=== PATIENT | female | born 1945 | race Caucasian/White ===

== ENCOUNTER → 2017-05-30 | Outpatient (CLI) | payer OTHER, MEDICARE ==
[~2017-05-30] MED LIST: ALBU1AER9 INH; ASPI81TA57 PO; B-COTAB18 PO; BRIM0.1S OPB; CALC600T9 PO; CINN1CAP2 PO; COEN1CAP17 PO; DILT120C PO; LISI-461 PO; LSX20 PO; MAGN1TAB19 PO; METF-384 PO; MISCCAP8 PO; MULTCAP42 PO; OMEG10007 PO; POME250C2 PO; ROSU5TAB PO; RXC5 PO; XLTOPS OPB; ZTA10 PO; [UNRECOGNIZED DRUG - OTHER] PO
--- NOTE | 2017-05-30 12:41 | MAMMOGRAPHY REPORT ---
BILATERAL DIGITAL SCREENING MAMMOGRAM WITH CAD: 05/30/2017 CLINICAL HISTORY: Routine screening. Patient has no complaints. TECHNIQUE: Current study was also evaluated with a Computer Aided Detection (CAD) system. Bilateral CC and MLO views were obtained. COMPARISON: Comparison is made to exams dated: 05/24/2015 mammogram and 05/29/2016 mammogram - [facility]. BREAST COMPOSITION: The tissue of both breasts is almost entirely fatty. FINDINGS: No suspicious masses, calcifications, or areas of architectural distortion are noted in ei ther breast. There has been no significant interval change compared to prior exams. Scattered bilater al benign-appearing calcifications are not significantly changed. There is a stable benign intramamm temitope lymph node in the left upper outer quadrant. IMPRESSION: ACR BI-RADS CATEGORY 2: BENIGN There is no mammographic evidence of malignancy. A 1 year screening mammogram is recommended. The pa tient will receive written notification of the results. Approximately 10% of breast cancers are not detected with mammography. A negative mammographic report should not delay biopsy if a clinically suggestive mass is present. Jennifer Mcdonald M.D. ah/:05/30/2017 12:14:59 Signal Tower Director: Kayy Rodriguez RT(R)(M), [facility] letter sent: Normal 1/2 BI-RADS Code: ACR BI-RADS Category 2: Benign
== END | disposition home or self-care (01) ==
LOC: C.MAMM 10:36
PROVIDERS: ATTEND Family Medicine
DX: Z12.31 Encounter for screening mammogram for malignant neoplasm of breast (principal)

== ENCOUNTER → 2017-12-02 | Outpatient (CLI) | payer OTHER, MEDICARE ==
[~2017-12-02] MED LIST changes: +DILT-213 PO; -DILT120C PO
[2017-12-02 11:36] LABS: HEMATOCRIT 40.6 % (37-47); MEAN CELL VOLUME 83.9 fL (80-100); MEAN CORPUSCULAR HEMOGLOBIN 26.9 pg (25-34); MEAN PLATELET VOLUME 10.2 fL (7.4-10.4); PLATELET COUNT 309 K/uL (130-400); RED CELL DISTRIBUTION WIDTH CV 15.3 % (11.5-14.5); RED CELL DISTRIBUTION WIDTH SD 46.8 fL (36.4-46.3); WHITE BLOOD COUNT 8.93 K/uL (4.8-10.8)
[2017-12-02 11:55] LABS: ALBUMIN 3.6 gm/dl (3.4-5.0); ALT/SGPT 55 U/L (12-78); AST/SGOT 34 U/L (15-37); BLOOD UREA NITROGEN 34 mg/dl (7-18); CALCIUM 9.6 mg/dl (8.5-10.1); CARBON DIOXIDE 24 mmol/L (21-32); CREATININE 0.95 mg/dl (0.60-1.20); GLUCOSE 141 mg/dl (70-99); POTASSIUM 4.3 mmol/L (3.5-5.1); SODIUM 139 mmol/L (136-145)
[2017-12-02 11:56] LABS: CHOLESTEROL 194 mg/dl (0-200); HEMOGLOBIN A1C 7.5 % (4.5-5.6)
[2017-12-02 11:58] LABS: ALKALINE PHOSPHATASE 71 U/L (45-117); LDL CHOLESTEROL (DIRECT) 103 mg/dl; TOTAL PROTEIN 7.5 gm/dl (6.4-8.2)
== END | disposition home or self-care (01) ==
LOC: C.LABPBG 08:39
PROVIDERS: ATTEND Internal Medicine Cardiovascular Disease
DX: Z82.49 Family history of ischemic heart disease and other diseases of the circulatory system (principal); R00.2 Palpitations; Z79.899 Other long term (current) drug therapy

== ENCOUNTER → 2017-12-09 | Outpatient (CLI) | payer OTHER, MEDICARE ==
[2017-12-09 18:26] LABS: BLOOD UREA NITROGEN 24 mg/dl (7-18)
[2017-12-10 11:53] LABS: CREATININE 0.93 mg/dl (0.60-1.20)
== END | disposition home or self-care (01) ==
LOC: C.LABPBG 12:48
PROVIDERS: ATTEND Surgery
DX: K86.2 Cyst of pancreas (principal)

== ENCOUNTER 2017-12-22 14:55 | Emergency (ER) | payer OTHER, MEDICARE ==
[~2017-12-22] VITALS: Ht 154.9 cm; Wt 82.0 kg
[2017-12-22 15:01] VITALS: Ht 154.9 cm; Wt 82.0 kg
[2017-12-22] MEDS ORDERED: PROAIR INH (15:35)
[2017-12-22] MEDS ORDERED: GLIP10TA10 PO (15:35)
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
--- NOTE | 2017-12-22 16:13 | EMERGENCY ROOM VISIT NOTE ---
ED Visit Note First contact with patient: 15:02 Staff note: I have reviewed the Patients chart and have discussed this case with my PA. I generally agree with the ED note and findings.
[2017-12-22 16:29] VITALS: BP 140/71; PULSE 117; TEMP 36.9; O2SAT 93
== END 2017-12-22 16:30 | disposition home or self-care (01) ==
LOC: C.EDB 14:57 → C.EDD 16:30
DX: S80.12XA Contusion of left lower leg, initial encounter (principal); V47.0XXA Car driver injured in collision with fixed or stationary object in nontraffic accident, initial encounter; Y92.481 Parking lot as the place of occurrence of the external cause; E11.9 Type 2 diabetes mellitus without complications; Z79.84 Long term (current) use of oral hypoglycemic drugs

== ENCOUNTER → 2018-05-06 | Outpatient (CLI) | payer OTHER, MEDICARE ==
[~2018-05-06] MED LIST changes: -ALBU1AER9 INH; -ASPI81TA57 PO; -CINN1CAP2 PO; +GLIP10TA10 PO; +NITR-5 PO; +PROAIR INH; -RXC5 PO
[2018-05-06 13:02] LABS: HEMATOCRIT 38.8 % (37-47); HEMOGLOBIN 12.1 g/dL (12.0-16.0); MEAN CELL VOLUME 81.7 fL (80-100); MEAN CORPUSCULAR HEMOGLOBIN 25.5 pg (25-34); MEAN CORPUSCULAR HGB CONC 31.2 g/dl (32-36); MEAN PLATELET VOLUME 10.6 fL (7.4-10.4); PLATELET COUNT 318 K/uL (130-400); RED CELL DISTRIBUTION WIDTH CV 16.4 % (11.5-14.5); RED CELL DISTRIBUTION WIDTH SD 49.2 fL (36.4-46.3); WHITE BLOOD COUNT 8.43 K/uL (4.8-10.8)
[2018-05-06 13:47] LABS: HEMOGLOBIN A1C 7.1 % (4.5-5.6)
[2018-05-06 13:55] LABS: BLOOD UREA NITROGEN 27 mg/dl (7-18); CALCIUM 9.1 mg/dl (8.5-10.1); CARBON DIOXIDE 25 mmol/L (21-32); CHOLESTEROL 168 mg/dl (0-200); CREATININE 1.09 mg/dl (0.60-1.20); GLUCOSE 108 mg/dl (70-99); LDL CHOLESTEROL CALCULATED 62 mg/dl; POTASSIUM 4.6 mmol/L (3.5-5.1); SODIUM 139 mmol/L (136-145)
== END | disposition home or self-care (01) ==
LOC: C.LABPBG 10:17
PROVIDERS: ATTEND Family Medicine
DX: E11.9 Type 2 diabetes mellitus without complications (principal); D64.9 Anemia, unspecified; E78.5 Hyperlipidemia, unspecified; I10 Essential (primary) hypertension

== ENCOUNTER 2019-06-29 09:52 | Observation (INO) ==
--- NOTE | 2019-06-29 10:45 | XRay Report ---
XR chest 1V portable CLINICAL HISTORY: Chest pain. COMPARISON STUDY: Chest radiograph July 02, 2018. FINDINGS: Lung volumes are mildly diminished. Lungs are clear. There is no pneumothorax or pleural ef fusion. Cardiac size is normal. Mediastinal contours are normal. There is no evidence for pulmonary e shana. Lumbar spine fusion hardware is partially imaged. IMPRESSION: No acute cardiopulmonary findings. Electronically signed by: Masood Ng M.D. 06/29/2019 10:44 AM
[2019-06-29 11:18] LABS: Basophils # (auto) 0.05 K/uL (0-0.2); Basophils % (auto) 0.6 %; Eosinophils # (auto) 0.85 K/uL (0-0.5); Eosinophils % (auto) 9.8 %; Hematocrit (blood only) 37.9 % (37-47); Hemoglobin 12.7 g/dL (12.0-16.0); Immature Granulocytes # (auto) 0.02 K/uL (0.00-0.02); Immature Granulocytes % (auto) 0.2 %; Lymphocytes # (auto) 1.56 K/uL (1.2-3.4); Mean Corpuscular Hemoglobin 30.5 pg (25-34); Mean Corpuscular Hgb Conc 33.5 g/dL (32-36); Mean Corpuscular Volume 90.9 fL (80-100); Mean Platelet Volume 9.8 fL (7.4-10.4); Monocytes # (auto) 0.48 K/uL (0.11-0.59); Monocytes % (auto) 5.5 %; Neutrophils # (auto) 5.71 K/uL (1.4-6.5); Neutrophils % (auto) 65.9 %; Platelet Count 236 K/uL (130-400); RDW Coefficient of Variation 14.5 % (11.5-14.5); RDW Standard Deviation 48.3 fL (36.4-46.3); Red Blood Count 4.17 M/uL (4.2-5.4); White Blood Count 8.67 K/uL (4.8-10.8)
[2019-06-29 11:22] LABS: Appearance Urine Cloudy (Clear); Bacteria Urine Automated 4+ (Negative); Bilirubin Urine Negative (Negative); Blood Urine Trace (Negative); Color Urine Yellow; Glucose Urine UA Negative (Negative); Ketones Urine Negative (Negative); Leukocyte Esterase Urine 3+ (Negative); Nitrite Urine Positive (Negative); Protein Urine Negative (Negative); RBC Urine Automated 0-4 /hpf (0-4); Urobilinogen Urine Negative (Negative); WBC Urine Automated >30 /hpf (0-5)
[2019-06-29 11:28] LABS: Partial Thromboplastin Ratio 0.9; Partial Thromboplastin Time 23.6 Seconds (21.0-31.0); Prothrombin Time 10.2 Seconds (9.0-12.0)
[2019-06-29] MEDS ORDERED: cefTRIAXone SODIUM 2,000 MG/70 ML BAG IV STA (11:32)
[2019-06-29 11:35] LABS: Alanine Aminotransferase 47 U/L (12-78); Albumin Level 3.4 gm/dl (3.4-5.0); Aspartate Aminotransferase 32 U/L (15-37); BUN Creatinine Ratio 32.1 (10-20); Blood Urea Nitrogen 37 mg/dl (7-18); Calcium 9.1 mg/dl (8.5-10.1); Carbon Dioxide 25 mmol/L (21-32); Chloride 109 mmol/L (98-107); Est GFR (Non-African American) 45.7; Glucose 117 mg/dl (70-99); Lipase 131 U/L (73-393); Magnesium 1.7 mg/dl (1.8-2.4); Potassium 4.4 mmol/L (3.5-5.1); Sodium 143 mmol/L (136-145)
[2019-06-29 11:40] LABS: Albumin Globulin Ratio 0.9 (0.9-2); Alkaline Phosphatase 55 U/L (45-117); Bilirubin,Total 0.3 mg/dl (0.2-1); Globulin 3.8 gm/dl (2.5-4.0); Total Protein 7.2 gm/dl (6.4-8.2); Troponin I < 0.015 ng/ml (0-0.045)
[2019-06-29] MEDS ORDERED: INFLUENZA VIRUS QUAD VACCINE 0.5 ML SYR IM ONE (16:00)
[2019-06-29] MEDS ORDERED: INFLUENZA ADMINISTRATION CHARGE ONE (16:00)
--- NOTE | 2019-06-29 16:10 | Emergency Department Note ---
Entered by Naida Reynoso acting as a scribe for History of Present Illness General Chief complaint: Chest Pain Stated complaint: CP,L arm pain, Nausea Time Seen by Provider: 06/29/19 10:23 Source: patient History of Present Illness Provider complaint: Chest Pain Onset (ago): week(s) 2 Location: chest Radiation: extremity (Upper ) Maximum Pain Intensity: 4 Exacerbated By: + movement and + rest Associated symptoms: + diaphoresis, + nausea/vomiting (Positive nausea. Negative vomiting. ) and + other (Fatigue); no shortness of breath The patient is a 74 year old female who presents to the Emergency Room with complaints of chest pain that began 2 weeks ago. The patient states the pain radiates from her chest down her arms and is exacerbated by rest and movement. The patient reports experiencing diaphoresis, nausea, and fatigue but denies any vomiting. Additionally, the patient denies experiencing any shortness of breath. The patient notes that the pain usually lasts about 30 minutes and goes away with time. The patient mentioned that she just got off Keflex for a UTI but feels like she has developed another UTI. Additionally, the patient states that she takes medication once a week for cholesterol, blood pressure medication, and aspirin daily. Home Medications Home Medications Medication Instructions Recorded Confirmed Type aspirin [Aspirin Low Dose] 81 mg PO QAM 07/02/18 06/29/19 History brimonidine [Alphagan P] 1 drp OPHTHALMIC (EYE) BID 07/02/18 06/29/19 History calcium carbonate-vitamin D3 1 tab PO BID 07/02/18 06/29/19 History [Calcium 500 + D] coenzyme Q10 100 mg PO HS 07/02/18 06/29/19 History latanoprost 1 drp OPHTHALMIC (EYE) HS 07/02/18 06/29/19 History magnesium 400 mg PO 3XWK 07/02/18 06/29/19 History multivitamin 1 tab PO QAM 07/02/18 06/29/19 History omega 9-[id number]-fish oil [Fish Oil] 1 cap PO QAM 07/02/18 06/29/19 History vitamin B complex 1 tab PO QAM 07/02/18 06/29/19 History blood-glucose meter, drum-type kit #1 ea 04/14/19 06/29/19 History Saccharomyces boulardii 250 mg 250 mg PO HS cap 06/10/19 06/29/19 History capsule albuterol sulfate HFA 90 1 puff INHALATION Q6H PRN #18 gm 06/10/19 06/29/19 Rx mcg/actuation aerosol inhaler glipizide 10 mg tablet 10 mg PO BID #180 tab 06/10/19 06/29/19 Rx lisinopril 10 mg tablet 10 mg PO BID #180 tab 06/10/19 06/29/19 Rx metformin 1,000 mg tablet 1,000 mg PO BID #180 tab 06/17/19 06/29/19 Rx acetaminophen [Tylenol Extra 500 mg PO Q6H PRN 06/29/19 06/29/19 History Strength] diltiazem HCl [Cardizem CD] 120 mg PO HS 06/29/19 06/29/19 History ezetimibe [Zetia] 10 mg PO QAM 06/29/19 06/29/19 History fluticasone propionate 2 sprays INTRANASAL QAM 06/29/19 06/29/19 History furosemide [Lasix] 20 mg PO 3XWK 06/29/19 06/29/19 History nitrofurantoin macrocrystal 100 mg PO HS 06/29/19 06/29/19 History rosuvastatin [Crestor] 5 mg PO MO 06/29/19 06/29/19 History Allergies Allergy/AdvReac Type Severity Reaction Status Date / Time allopurinol Allergy Unknown rash Verified 06/29/19 10:29 Rfzipfn-Zpo-Oai Reductase Allergy Unknown Muscle Verified 06/29/19 10:29 Inhibitor weakness. nitrofurantoin AdvReac Unknown Verified 06/29/19 10:29 [From Furadantin] Past Med/Surg History Medical History Venous insufficiency Stress incontinence in female Recurrent UTI Nephrolithiasis Lumbar spinal stenosis Intraductal papillary mucinous neoplasm of pancreas Hypertension Hyperlipidemia Diabetes mellitus Asthma Arthritis Anemia Cataract HTN (hypertension) Surgical History Status post lumbar surgery History of dental surgery History of knee replacement BOTH KNEES S/P appendectomy S/P bunionectomy S/P cataract extraction S/P cholecystectomy S/P dilation and curettage S/P laminectomy (08/06/16) Status post amputation of toe Family History Mother Cervical cancer Father Myocardial infarction Coronary heart disease Heart disease Sister Diabetes Social History Preferred Language: Tajik Communication Ability: Effective Visual Impairment: No Limitations Hearing Ability: Normal Insurance Billing Clerk Required: No Beliefs That Will Affect Care: None marital status: Current Living Situation: Alone current occupational status: retired Other Information That Helps Us Care for You: No Feels Safe at Home: Yes Safety Concerns: Feels Safe At This Time Smoking Status: Never smoker Do You Dip or Chew Tobacco: No ; Second Hand Exposure: No ; Tobacco Cessation Education Requested by Patient: No Hx Alcohol Use: No Hx Substance Use: No Dental Care, Regularly: Yes Physical Activity Frequency: 5-6 Times per Week Seatbelt Use: always Review of Systems See HPI for pertinent positives & negatives. and A total of 10 systems reviewed and were otherwise negative Physical Exam Vital Signs Vital Signs - 24 hr 06/29/19 09:54 06/29/19 09:58 06/29/19 09:59 Temperature 36.9 C Temperature Source Oral Sepsis Recent Fever Within 48 Hours No Sepsis New/Unexplained Change in Mental Status No Sepsis Action Taken by Nursing No Action Required Pulse Rate 76 78 77 Pulse Rate [Apical] 73 Pulse Rate from SpO2 Sensor 78 Pulse Rhythm [Apical] Regular Respiratory Rate 21 25 H 26 H Respiratory Effort / Characteristics Non-Labored Respiratory Depth Normal Respiratory Pattern Regular Blood Pressure 163/98 H 136/98 Blood Pressure [Right Arm] 149/89 H Blood Pressure Mean 119 110 Blood Pressure Mean [Right Arm] 109 Blood Pressure Position Sitting Blood Pressure Position [Right Arm] Sitting Pulse Oximetry 95 97 Oxygen Delivery Method Room Air Oxygen Flow Rate 0 06/29/19 10:00 06/29/19 10:07 06/29/19 10:10 Temperature Temperature Source Sepsis Recent Fever Within 48 Hours Sepsis New/Unexplained Change in Mental Status Sepsis Action Taken by Nursing Pulse Rate 73 74 77 Pulse Rate [Apical] Pulse Rate from SpO2 Sensor 73 73 76 Pulse Rhythm [Apical] Respiratory Rate 22 17 20 Respiratory Effort / Characteristics Respiratory Depth Respiratory Pattern Blood Pressure 149/89 H Blood Pressure [Right Arm] Blood Pressure Mean 109 Blood Pressure Mean [Right Arm] Blood Pressure Position Blood Pressure Position [Right Arm] Pulse Oximetry 95 96 94 Oxygen Delivery Method Oxygen Flow Rate 06/29/19 10:20 06/29/19 10:30 06/29/19 10:31 Temperature Temperature Source Sepsis Recent Fever Within 48 Hours Sepsis New/Unexplained Change in Mental Status Sepsis Action Taken by Nursing Pulse Rate 72 75 73 Pulse Rate [Apical] Pulse Rate from SpO2 Sensor 72 75 73 Pulse Rhythm [Apical] Respiratory Rate 23 22 22 Respiratory Effort / Characteristics Respiratory Depth Respiratory Pattern Blood Pressure 148/78 H Blood Pressure [Right Arm] Blood Pressure Mean 101 Blood Pressure Mean [Right Arm] Blood Pressure Position Blood Pressure Position [Right Arm] Pulse Oximetry 94 94 96 Oxygen Delivery Method Oxygen Flow Rate 06/29/19 10:33 06/29/19 10:40 06/29/19 10:50 Temperature Temperature Source Sepsis Recent Fever Within 48 Hours Sepsis New/Unexplained Change in Mental Status Sepsis Action Taken by Nursing Pulse Rate 70 68 Pulse Rate [Apical] Pulse Rate from SpO2 Sensor 70 68 Pulse Rhythm [Apical] Respiratory Rate 18 17 Respiratory Effort / Characteristics Respiratory Depth Respiratory Pattern Blood Pressure Blood Pressure [Right Arm] Blood Pressure Mean Blood Pressure Mean [Right Arm] Blood Pressure Position Blood Pressure Position [Right Arm] Pulse Oximetry 97 96 94 Oxygen Delivery Method Room Air Oxygen Flow Rate 06/29/19 11:06 06/29/19 11:10 06/29/19 11:20 Temperature Temperature Source Sepsis Recent Fever Within 48 Hours Sepsis New/Unexplained Change in Mental Status Sepsis Action Taken by Nursing Pulse Rate 70 68 67 Pulse Rate [Apical] Pulse Rate from SpO2 Sensor 70 68 67 Pulse Rhythm [Apical] Respiratory Rate 24 21 21 Respiratory Effort / Characteristics Respiratory Depth Respiratory Pattern Blood Pressure Blood Pressure [Right Arm] Blood Pressure Mean Blood Pressure Mean [Right Arm] Blood Pressure Position Blood Pressure Position [Right Arm] Pulse Oximetry 94 94 92 Oxygen Delivery Method Oxygen Flow Rate 06/29/19 11:30 06/29/19 11:40 06/29/19 11:50 Temperature Temperature Source Sepsis Recent Fever Within 48 Hours Sepsis New/Unexplained Change in Mental Status Sepsis Action Taken by Nursing Pulse Rate 65 66 70 Pulse Rate [Apical] Pulse Rate from SpO2 Sensor 65 65 70 Pulse Rhythm [Apical] Respiratory Rate 21 19 26 H Respiratory Effort / Characteristics Respiratory Depth Respiratory Pattern Blood Pressure Blood Pressure [Right Arm] Blood Pressure Mean Blood Pressure Mean [Right Arm] Blood Pressure Position Blood Pressure Position [Right Arm] Pulse Oximetry 93 93 94 Oxygen Delivery Method Oxygen Flow Rate 06/29/19 11:53 06/29/19 12:00 06/29/19 12:01 Temperature Temperature Source Sepsis Recent Fever Within 48 Hours Sepsis New/Unexplained Change in Mental Status Sepsis Action Taken by Nursing Pulse Rate 70 70 72 Pulse Rate [Apical] Pulse Rate from SpO2 Sensor 71 71 71 Pulse Rhythm [Apical] Respiratory Rate 26 H 23 25 H Respiratory Effort / Characteristics Respiratory Depth Respiratory Pattern Blood Pressure 133/78 126/64 Blood Pressure [Right Arm] Blood Pressure Mean 96 84 Blood Pressure Mean [Right Arm] Blood Pressure Position Blood Pressure Position [Right Arm] Pulse Oximetry 94 94 94 Oxygen Delivery Method Oxygen Flow Rate 06/29/19 12:10 06/29/19 12:20 06/29/19 12:30 Temperature Temperature Source Sepsis Recent Fever Within 48 Hours Sepsis New/Unexplained Change in Mental Status Sepsis Action Taken by Nursing Pulse Rate 69 73 70 Pulse Rate [Apical] Pulse Rate from SpO2 Sensor 69 72 70 Pulse Rhythm [Apical] Respiratory Rate 26 H 26 H 17 Respiratory Effort / Characteristics Respiratory Depth Respiratory Pattern Blood Pressure 147/64 H Blood Pressure [Right Arm] Blood Pressure Mean 91 Blood Pressure Mean [Right Arm] Blood Pressure Position Blood Pressure Position [Right Arm] Pulse Oximetry 95 95 95 Oxygen Delivery Method Oxygen Flow Rate 06/29/19 12:31 06/29/19 12:40 06/29/19 12:50 Temperature Temperature Source Sepsis Recent Fever Within 48 Hours Sepsis New/Unexplained Change in Mental Status Sepsis Action Taken by Nursing Pulse Rate 72 71 74 Pulse Rate [Apical] Pulse Rate from SpO2 Sensor 72 72 74 Pulse Rhythm [Apical] Respiratory Rate 24 19 24 Respiratory Effort / Characteristics Respiratory Depth Respiratory Pattern Blood Pressure Blood Pressure [Right Arm] Blood Pressure Mean Blood Pressure Mean [Right Arm] Blood Pressure Position Blood Pressure Position [Right Arm] Pulse Oximetry 95 97 95 Oxygen Delivery Method Oxygen Flow Rate 06/29/19 13:01 06/29/19 13:10 06/29/19 13:20 Temperature Temperature Source Sepsis Recent Fever Within 48 Hours Sepsis New/Unexplained Change in Mental Status Sepsis Action Taken by Nursing Pulse Rate 76 72 73 Pulse Rate [Apical] Pulse Rate from SpO2 Sensor 79 73 72 Pulse Rhythm [Apical] Respiratory Rate 26 H 25 H 20 Respiratory Effort / Characteristics Respiratory Depth Respiratory Pattern Blood Pressure Blood Pressure [Right Arm] Blood Pressure Mean Blood Pressure Mean [Right Arm] Blood Pressure Position Blood Pressure Position [Right Arm] Pulse Oximetry 95 95 97 Oxygen Delivery Method Oxygen Flow Rate 06/29/19 13:30 06/29/19 13:31 06/29/19 13:40 Temperature Temperature Source Sepsis Recent Fever Within 48 Hours Sepsis New/Unexplained Change in Mental Status Sepsis Action Taken by Nursing Pulse Rate 71 72 71 Pulse Rate [Apical] Pulse Rate from SpO2 Sensor 72 72 71 Pulse Rhythm [Apical] Respiratory Rate 25 H 24 22 Respiratory Effort / Characteristics Respiratory Depth Respiratory Pattern Blood Pressure 129/68 Blood Pressure [Right Arm] Blood Pressure Mean 88 Blood Pressure Mean [Right Arm] Blood Pressure Position Blood Pressure Position [Right Arm] Pulse Oximetry 95 95 95 Oxygen Delivery Method Oxygen Flow Rate 06/29/19 13:50 06/29/19 14:00 06/29/19 14:01 Temperature Temperature Source Sepsis Recent Fever Within 48 Hours Sepsis New/Unexplained Change in Mental Status Sepsis Action Taken by Nursing Pulse Rate 72 72 71 Pulse Rate [Apical] Pulse Rate from SpO2 Sensor 72 73 72 Pulse Rhythm [Apical] Respiratory Rate 24 24 21 Respiratory Effort / Characteristics Respiratory Depth Respiratory Pattern Blood Pressure 136/59 L Blood Pressure [Right Arm] Blood Pressure Mean 84 Blood Pressure Mean [Right Arm] Blood Pressure Position Blood Pressure Position [Right Arm] Pulse Oximetry 94 93 95 Oxygen Delivery Method Oxygen Flow Rate 06/29/19 14:10 06/29/19 14:20 06/29/19 14:30 Temperature Temperature Source Sepsis Recent Fever Within 48 Hours Sepsis New/Unexplained Change in Mental Status Sepsis Action Taken by Nursing Pulse Rate 73 72 71 Pulse Rate [Apical] Pulse Rate from SpO2 Sensor 73 72 71 Pulse Rhythm [Apical] Respiratory Rate 25 H 24 20 Respiratory Effort / Characteristics Respiratory Depth Respiratory Pattern Blood Pressure 136/60 Blood Pressure [Right Arm] Blood Pressure Mean 85 Blood Pressure Mean [Right Arm] Blood Pressure Position Blood Pressure Position [Right Arm] Pulse Oximetry 94 95 96 Oxygen Delivery Method Oxygen Flow Rate 06/29/19 14:31 Temperature Temperature Source Sepsis Recent Fever Within 48 Hours Sepsis New/Unexplained Change in Mental Status Sepsis Action Taken by Nursing Pulse Rate 73 Pulse Rate [Apical] Pulse Rate from SpO2 Sensor 73 Pulse Rhythm [Apical] Respiratory Rate 22 Respiratory Effort / Characteristics Respiratory Depth Respiratory Pattern Blood Pressure Blood Pressure [Right Arm] Blood Pressure Mean Blood Pressure Mean [Right Arm] Blood Pressure Position Blood Pressure Position [Right Arm] Pulse Oximetry 93 Oxygen Delivery Method Oxygen Flow Rate GENERAL: Patient is in no acute distress. HEENT: No acute trauma, normocephalic atraumatic, mucous membranes moist, no nasal congestion, no scleral icterus. NECK: No stridor, no adenopathy, no meningismus, trachea is midline. LUNGS: Clear to auscultation bilaterally, no wheeze, no rhonchi, breath sounds equal. HEART: 2/6 systolic murmur heard best at left sternal border. Regular rate and rhythm. ABDOMEN: Soft, nontender, bowel sounds positive, no hernias, no peritonitis. EXTREMITIES: No cyanosis or edema, full range of motion of all the joints without pain or difficulty, no signs for acute trauma. NEUROLOGIC: Oriented x 3, no acute motor or sensory deficits, no focal weakness. SKIN: No rash, no jaundice, no diaphoresis. Course 1030: Past medical records reviewed. The patient was evaluated in room A09B. A complete history and physical exam was performed. 1238: I reevaluated and discussed test results with the patient. The patient is agreeable with the treatment plan and will stay in the hospital. 1253: I spoke with Dr. Bullard about the patient's case and she will accept the patient for further evaluation. Administered Medications Famotidine 20 mg/ Syringe 5 mls @ 2.5 mls/min IV DAILY@1800 [facility] Stop: 07/29/19 17:59 Last Admin: 06/29/19 17:34 Dose: 2.5 mls/min Documented by: [id number] Insulin Aspart (Novolog Flexpen) 0 units SC ACHS [facility] Stop: 07/29/19 16:29 Last Admin: 06/29/19 17:39 Dose: 1 units Documented by: [id number] Cosigned by: [id number] Rosuvastatin Calcium (Crestor) 5 mg PO Mo@0900 [facility] Stop: 07/29/19 16:25 Last Admin: 06/29/19 17:40 Dose: 5 mg Documented by: [id number] Discontinued Medications Ceftriaxone Sodium (Rocephin) 2,000 mg in 70 mls @ 140 mls/hr IV NOW [facility] Stop: 06/29/19 12:01 Last Infusion: 06/29/19 12:20 Dose: 0 mls/hr Documented by: [id number] Admin: 06/29/19 11:47 Dose: 140 mls/hr Documented by: [id number] Medical Decision Making Differential Diagnosis Differentials Include: Angina, RI, Musculoskeletal pain, Anemia, Electrolyte Imbalance, Aortic D issection, PE, and UTI. Medical Records Attestation: I reviewed the patient's medical records. Home Medications Current Medication List: was personally reviewed by me Laboratory Data Attestation: I reviewed the patient's lab results. Result diagrams: 06/29/19 11:09 06/29/19 11:09 Lab Results 06/29/19 06/29/19 06/29/19 Range/Units 11:04 11:09 11:09 WBC 8.67 (4.8-10.8) K/uL RBC 4.17 L (4.2-5.4) M/uL Hgb 12.7 (12.0-16.0) g/dL Hct 37.9 (37-47) % MCV 90.9 (80-100) fL MCH 30.5 (25-34) pg MCHC 33.5 (32-36) g/dL RDW Std Deviation 48.3 H (36.4-46.3) fL RDW Coeff of Duc 14.5 (11.5-14.5) % Plt Count 236 (130-400) K/uL MPV 9.8 (7.4-10.4) fL Immature Gran % (Auto) 0.2 % Neut % (Auto) 65.9 % Lymph % (Auto) 18.0 % [place] % (Auto) 5.5 % Eos % (Auto) 9.8 % Baso % (Auto) 0.6 % Immature Gran # (Auto) 0.02 (0.00-0.02) K/uL Neut # (Auto) 5.71 (1.4-6.5) K/uL Lymph # (Auto) 1.56 (1.2-3.4) K/uL [place] # (Auto) 0.48 (0.11-0.59) K/uL Eos # (Auto) 0.85 H (0-0.5) K/uL Baso # (Auto) 0.05 (0-0.2) K/uL PT 10.2 (9.0-12.0) Seconds INR 1.0 (0.9-1.1) APTT 23.6 (21.0-31.0) Seconds PTT Ratio 0.9 Sodium (136-145) mmol/L Potassium (3.5-5.1) mmol/L Chloride (98-107) mmol/L Carbon Dioxide (21-32) mmol/L Anion Gap (3-11) BUN (7-18) mg/dl Creatinine (0.6-1.2) mg/dl Est Cr Clr Drug Dosing ml/min Est GFR ( Amer) Est GFR (Non-Af Amer) BUN/Creatinine Ratio (10-20) Glucose (70-99) mg/dl Calcium (8.5-10.1) mg/dl Magnesium (1.8-2.4) mg/dl Total Bilirubin (0.2-1) mg/dl AST (15-37) U/L ALT (12-78) U/L Alkaline Phosphatase (45-117) U/L Troponin I (0-0.045) ng/ml NT-Pro-B Natriuret Pep (0-1800) pg/ml Total Protein (6.4-8.2) gm/dl Albumin (3.4-5.0) gm/dl Globulin (2.5-4.0) gm/dl Albumin/Globulin Ratio (0.9-2) Lipase (73-393) U/L TSH (0.300-4.500) uIu/ml Urine Color Yellow Urine Appearance Cloudy A (Clear) Urine pH 5.0 (4.5-7.5) Ur Specific [place] 1.020 (1.000-1.030) Urine Protein Negative (Negative) Urine Glucose (UA) Negative (Negative) Urine Ketones Negative (Negative) Urine Blood Trace H (Negative) Urine Nitrite Positive A (Negative) Urine Bilirubin Negative (Negative) Urine Urobilinogen Negative (Negative) Ur Leukocyte Esterase 3+ H (Negative) Urine WBC (Auto) >30 H (0-5) /hpf Urine RBC (Auto) 0-4 (0-4) /hpf U Hyaline Cast (Auto) 1-5 (0-5) /lpf U Epithel Cells (Auto) 10-20 H (0-5) /lpf Urine Bacteria (Auto) 4+ H (Negative) 06/29/19 06/29/19 Range/Units 11:09 11:09 WBC (4.8-10.8) K/uL RBC (4.2-5.4) M/uL Hgb (12.0-16.0) g/dL Hct (37-47) % MCV (80-100) fL MCH (25-34) pg MCHC (32-36) g/dL RDW Std Deviation (36.4-46.3) fL RDW Coeff of Duc (11.5-14.5) % Plt Count (130-400) K/uL MPV (7.4-10.4) fL Immature Gran % (Auto) % Neut % (Auto) % Lymph % (Auto) % [place] % (Auto) % Eos % (Auto) % Baso % (Auto) % Immature Gran # (Auto) (0.00-0.02) K/uL Neut # (Auto) (1.4-6.5) K/uL Lymph # (Auto) (1.2-3.4) K/uL [place] # (Auto) (0.11-0.59) K/uL Eos # (Auto) (0-0.5) K/uL Baso # (Auto) (0-0.2) K/uL PT (9.0-12.0) Seconds INR (0.9-1.1) APTT (21.0-31.0) Seconds PTT Ratio Sodium 143 (136-145) mmol/L Potassium 4.4 (3.5-5.1) mmol/L Chloride 109 H (98-107) mmol/L Carbon Dioxide 25 (21-32) mmol/L Anion Gap 9.0 (3-11) BUN 37 H (7-18) mg/dl Creatinine 1.16 (0.6-1.2) mg/dl Est Cr Clr Drug Dosing 40.0 ml/min Est GFR ( Amer) 53.0 Est GFR (Non-Af Amer) 45.7 BUN/Creatinine Ratio 32.1 H (10-20) Glucose 117 H (70-99) mg/dl Calcium 9.1 (8.5-10.1) mg/dl Magnesium 1.7 L (1.8-2.4) mg/dl Total Bilirubin 0.3 (0.2-1) mg/dl AST 32 (15-37) U/L ALT 47 (12-78) U/L Alkaline Phosphatase 55 (45-117) U/L Troponin I < 0.015 (0-0.045) ng/ml NT-Pro-B Natriuret Pep 96 (0-1800) pg/ml Total Protein 7.2 (6.4-8.2) gm/dl Albumin 3.4 (3.4-5.0) gm/dl Globulin 3.8 (2.5-4.0) gm/dl Albumin/Globulin Ratio 0.9 (0.9-2) Lipase 131 (73-393) U/L TSH 0.821 (0.300-4.500) uIu/ml Urine Color Urine Appearance (Clear) Urine pH (4.5-7.5) Ur Specific [place] (1.000-1.030) Urine Protein (Negative) Urine Glucose (UA) (Negative) Urine Ketones (Negative) Urine Blood (Negative) Urine Nitrite (Negative) Urine Bilirubin (Negative) Urine Urobilinogen (Negative) Ur Leukocyte Esterase (Negative) Urine WBC (Auto) (0-5) /hpf Urine RBC (Auto) (0-4) /hpf U Hyaline Cast (Auto) (0-5) /lpf U Epithel Cells (Auto) (0-5) /lpf Urine Bacteria (Auto) (Negative) Imaging Data Radiologist's Impression: Radiology results as stated below per my review and the radiologist's interpretation: XR chest 1V portable CLINICAL HISTORY: Chest pain. COMPARISON STUDY: Chest radiograph July 02, 2018. FINDINGS: Lung volumes are mildly diminished. Lungs are clear. There is no pneumothorax or pleural effusion. Cardiac size is normal. Mediastinal contours are normal. There is no evidence for pulmonary edema. Lumbar spine fusion hardw are is partially imaged. IMPRESSION: No acute cardiopulmonary findings. Electronically signed by: Masood Ng M.D. 06/29/2019 10:44 AM ECG Data Attestation: I personally reviewed and interpreted this ECG as follows: Indication: chest pain Rate (beats per minute): 75 Rhythm: sinus rhythm Findings: + other (QTC 431) and + 1st degree AV block; no ST elevation and no acute ischemic change Blood Pressure Blood Pressure Findings: Elevated blood pressure Blood Pressure Disposition: further management by hospitalist [facility] Narrative There is no leukocytosis or concerning anemia. No coagulopathy. No kidney failure. Magnesium somewhat low at 1.7. No liver enzyme elevation. No evidence for pancreatitis. EKG shows a sinus rhythm, no acute ischemia. Cardiac enzyme testing x1 is not consistent with acute cardiac injury. Chest film did not show pneumonia or CHF. Urinalysis does suggest infection. The patient presents with a few weeks of left chest pain with some left arm discomfort. This morning, she had some nausea and sweating with the pain. She does have multiple cardiac risk factors. I did give a dose of IV ceftriaxone for the diagnosis of UTI. Based on her recent urine culture, ceftriaxone should be effective. I spoke to the patient and case management. The on-call hospitalist was consulted. Further cardiac work-up is warranted. Impression & Plan Precordial chest pain, Acute UTI Discharge Plan Visit Data *Final* Discharge Date/Time: 06/29/19 16:20 Chief Complaint: Chest Pain Stated Complaint: CP,L arm pain, Nausea ED Provider: Anderson Vasquez Discharge Problem: Precordial chest pain, Acute UTI Patient Disposition: Admitted As Inpatient Discharge Instructions Interventions: ED Discharge Assessment Last Done: 06/29/19 16:20 The scribe's documentation has been prepared under my direction and personally reviewed by me in its entirety. I confirm that the note above accurately reflects all work, treatment, procedures, and medical decision making performed by me.
[2019-06-29] MEDS ORDERED: ROSUVASTATIN CALCIUM 5 MG TAB PO SCH (16:26)
[2019-06-29] MEDS ORDERED: GLUCAGON FOR INJ 1 MG VIAL SQ PRN (16:26)
[2019-06-29] MEDS ORDERED: ZOLPIDEM TARTRATE 5 MG TAB PO PRN (16:26)
[2019-06-29] MEDS ORDERED: POLYETHYLENE (MIRALAX) 17 GM PACK PO PRN (16:26)
[2019-06-29] MEDS ORDERED: MAGNESIUM 400 MG PO SCH (16:26)
[2019-06-29] MEDS ORDERED: CARBOHYDRATES FOR HYPOGLYCEMIA PO PRN (16:26)
[2019-06-29] MEDS ORDERED: GLUCOSE 10 TABS/TUBE PO PRN (16:26)
[2019-06-29] MEDS ORDERED: ALBUT/IPRATROP 3MG/0.5MG NEB 3 ML VIAL NEB PRN (16:26)
[2019-06-29] MEDS ORDERED: MAGNESIUM HYDROXIDE SUSP 30 ML UDC PO PRN (16:26)
[2019-06-29] MEDS ORDERED: DEXTROSE 50% 50 ML SYRINGE IV PRN (16:26)
[2019-06-29] MEDS ORDERED: ONDANSETRON INJ 2 MG/ML 2 ML VIAL IV PRN (16:26)
[2019-06-29] MEDS ORDERED: ALUMINUM/MAGNESIUM SUSP 30 ML UDC PO PRN (16:26)
[2019-06-29] MEDS ORDERED: GLUCOSE 40% GEL 15 GM TUBE PO PRN (16:26)
[2019-06-29] MEDS ORDERED: PHARMACY GLYCEMIC MGMT CONSULT PRN (17:02)
[2019-06-29 17:17] LABS: Thyroid Stimulating Hormone 0.821 uIu/ml (0.300-4.500)
[2019-06-29] MEDS: INSULIN ASPART 100 UNITS/ML 3 ML PEN SC SCH ×2 (17:39→21:11)
[2019-06-29] MEDS ORDERED: FAMOTIDINE 20 MG in SYRINGE 3 ML IV SCH (18:00)
[2019-06-29] MEDS ORDERED: SACCHAROMYCES BOULARDII 250 MG CAP PO SCH (21:00)
[2019-06-29] MEDS ORDERED: LATANOPROST 0.005% OP SOLN 2.5 ML BTL OP SCH (21:00)
[2019-06-29] MEDS ORDERED: dilTIAZem HCL 120 MG CAPCR PO SCH (21:00)
[2019-06-29] MEDS ORDERED: NON-FORMULARY MEDICATION (Coenzyme Q10 100 MG) PO SCH (21:00)
[2019-06-29] MEDS: BRIMONIDINE TARTRATE 0.2% 5ML OP SCH (21:05)
[2019-06-29] MEDS: CALCIUM 600MG + VIT D 400 IU TAB PO SCH (21:05)
[2019-06-29] MEDS: HEPARIN SOD 5,000 UNIT/0.5 ML VIAL SQ SCH (21:07)
[2019-06-29] MEDS: lisinopriL 10 MG TAB PO SCH (21:08)
--- NOTE | 2019-06-29 23:43 | History & Physical Report ---
Date of Service June 29, 2019 Assessment & Plan (1) Precordial chest pain: Admit to PCU on tele for OBSV vital signs Q4 hr Troponin x 2 Q6 hr with EKG r/o ACS TTE pending , consider consulting cardiology if TTE concerning. Consider nuclear stress test CBC, CMP daily replenish electrolytes DVT ppx heparin 5000 units Q12 Full code Present on Admission?: Yes (2) Acute UTI: Started Ceftriaxone in the ER and continued on the floor. Prior infection with Klebsiella Pneumoniae sensitive to ceftriaxone. f/u Ucx.Renals sono pending to determine possible origing of UTI such as nephrolithiasis, stress incontinence , renal/bladder abnormalities? Present on Admission?: Yes (3) Nephrolithiasis: Pt had issues in the past but not know, see above. Present on Admission?: Yes (4) Hypertension: Stable, continue home meds: Asa 81 mg QD, coenzyme Q10 100 mg PO hS, diltiazem 120 mg PO hs, furosemide 20 mg PO 3 times weekly, lisinopril 10 mg PO BID, Monitor BP Q4 hr and titrate meds as needed. Present on Admission?: Yes (5) Hyperlipidemia: Lipid panel pending, continue Fish oil and rosuvastatin 5 mg PO MO. Present on Admission?: Yes (6) Diabetes mellitus: hold metformin while pt hospitalized due to possible needs for radiological procedure with contrast and or impending hypoglycemia. Accu cheks AC&HS, SSI, management per pharmacy. Present on Admission?: Yes (7) Asthma: continue home meds: Albutereol HFA, and for seasonal allergies fluticasone 2 sprays IN QA, Present on Admission?: Yes (8) Anemia: appears to be due to chronic Illness and less likely due to blood loss. F/u iron studies.Fiob pending. Present on Admission?: Yes History of Present Illness Chief Complaint: Pt is a 74 y/o female with pMHx of nephrolithiasis, DM ty 2, HTN, hyperlipidemia, Asthma, Anemia, Hx of intraductal papillary mucinous neoplasm of the pancreas presents to the ER with a compliant of tightness in her chest that radiates from her chest down her arms and is exacerbated by rest and movement. The patient reports experiencing diaphoresis, nausea, and fatigue but denies any vomiting. Pt denies fever, chills, SOB, abdominal pain, frequency urgency, hematuria and melena. The patient notes that the pain usually lasts about 30 minutes and goes away with time. The patient mentioned that she just got off Keflex for a UTI but feels like she has developed another UTI and her jana UA turned purple this morning. The patient states that she takes medication once a week for cholesterol, blood pressure medication, and aspirin daily.Labs reviewed:Trop neg 0.015, WBC 8.67, Hgb 12.7, Hct 37.9, BUN 37, Cr 1.16, GFR 45.7, urine positive for nitrates, cloudy, >30 WBC, 4+ bacteria, 3+LE.EKG:Sinus Rhythm, with 1degree AV block.Plan to admit pt to PCU on telemetry to r/o ACS and to treat UTI with IV abx. Primary Care Provider: Sarah Beth Flores DO Allergies Allergy/AdvReac Type Severity Reaction Status Date / Time allopurinol Allergy Unknown rash Verified 06/29/19 10:29 [id number]-Mlq-Qxz Reductase Allergy Unknown Muscle Verified 06/29/19 10:29 Inhibitor weakness. nitrofurantoin AdvReac Unknown Verified 06/29/19 10:29 [From Furadantin] Home Medications Home Medications Medication Instructions Recorded Confirmed Type aspirin [Aspirin Low Dose] 81 mg PO QAM 07/02/18 06/29/19 History brimonidine [Alphagan P] 1 drp OPHTHALMIC (EYE) BID 07/02/18 06/29/19 History calcium carbonate-vitamin D3 1 tab PO BID 07/02/18 06/29/19 History [Calcium 500 + D] coenzyme Q10 100 mg PO HS 07/02/18 06/29/19 History latanoprost 1 drp OPHTHALMIC (EYE) HS 07/02/18 06/29/19 History magnesium 400 mg PO 3XWK 07/02/18 06/29/19 History multivitamin 1 tab PO QAM 07/02/18 06/29/19 History omega 1-cub-tni-fish oil [Fish Oil] 1 cap PO QAM 07/02/18 06/29/19 History vitamin B complex 1 tab PO QAM 07/02/18 06/29/19 History blood-glucose meter, drum-type kit #1 ea 04/14/19 06/29/19 History Saccharomyces boulardii 250 mg 250 mg PO HS cap 06/10/19 06/29/19 History capsule albuterol sulfate HFA 90 1 puff INHALATION Q6H PRN #18 gm 06/10/19 06/29/19 Rx mcg/actuation aerosol inhaler glipizide 10 mg tablet 10 mg PO BID #180 tab 06/10/19 06/29/19 Rx lisinopril 10 mg tablet 10 mg PO BID #180 tab 06/10/19 06/29/19 Rx metformin 1,000 mg tablet 1,000 mg PO BID #180 tab 06/17/19 06/29/19 Rx acetaminophen [Tylenol Extra 500 mg PO Q6H PRN 06/29/19 06/29/19 History Strength] diltiazem HCl [Cardizem CD] 120 mg PO HS 06/29/19 06/29/19 History ezetimibe [Zetia] 10 mg PO QAM 06/29/19 06/29/19 History fluticasone propionate 2 sprays INTRANASAL QAM 06/29/19 06/29/19 History furosemide [Lasix] 20 mg PO 3XWK 06/29/19 06/29/19 History nitrofurantoin macrocrystal 100 mg PO HS 06/29/19 06/29/19 History rosuvastatin [Crestor] 5 mg PO MO 06/29/19 06/29/19 History Past Med/Surg History Medical History Venous insufficiency Stress incontinence in female Recurrent UTI Nephrolithiasis Lumbar spinal stenosis Intraductal papillary mucinous neoplasm of pancreas Hypertension Hyperlipidemia Diabetes mellitus Asthma Arthritis Anemia Cataract HTN (hypertension) Surgical History Status post lumbar surgery History of dental surgery History of knee replacement BOTH KNEES S/P appendectomy S/P bunionectomy S/P cataract extraction S/P cholecystectomy S/P dilation and curettage S/P laminectomy (08/06/16) Status post amputation of toe Family History Mother Cervical cancer Father Myocardial infarction Coronary heart disease Heart disease Sister Diabetes Social History Preferred Language: Maori Communication Ability: Effective Visual Impairment: No Limitations Hearing Ability: Normal Windmill Mechanic Required: No Beliefs That Will Affect Care: None marital status: Current Living Situation: Alone current occupational status: retired Other Information That Helps Us Care for You: No Feels Safe at Home: Yes Safety Concerns: Feels Safe At This Time Smoking Status: Never smoker Do You Dip or Chew Tobacco: No ; Second Hand Exposure: No ; Tobacco Cessation Education Requested by Patient: No Hx Alcohol Use: No Hx Substance Use: No Dental Care, Regularly: Yes Physical Activity Frequency: 5-6 Times per Week Seatbelt Use: always Review of Systems Review of Systems: All systems reviewed & are unremarkable except as noted in HPI & below Physical Exam Constitutional: WD/WN, vitals as above + obese Eyes: PERRL, conjunctivae normal, anicteric sclerae ENMT: external ear and nose normal, oropharynx normal Neck: trachea midline, no thyromegaly Respiratory: normal respiratory effort, lungs clear to auscultation Cardiovascular: Heart Sounds: normal S1 and normal S2 Vessels: dorsalis pedis pulses present Gastrointestinal (Abdomen): normal bowel sounds, soft, nontender, no hepatosplenomegaly Musculoskeletal: no cyanosis or clubbing, extremities motor strength 5/5 Skin: no rashes, warm and dry Neurologic: patellar DTR's 2+ bilat, sensation intact Psychiatric: A+Ox3, euthymic affect Lymphatic: no cervical or axillary lymphadenopathy Results & Data Vital Signs (Past 12 Hours) Vital Signs Temp Pulse Pulse Resp BP BP Pulse Ox 06/29/19 14:01 71 21 06/29/19 14:00 72 24 136/59 L 93 06/29/19 13:50 72 24 94 06/29/19 13:40 71 22 06/29/19 13:31 72 24 06/29/19 13:30 71 25 H 129/68 06/29/19 13:20 73 20 97 06/29/19 13:10 72 25 H 06/29/19 13:01 76 26 H 06/29/19 12:50 74 24 06/29/19 12:40 71 19 97 06/29/19 12:31 72 24 06/29/19 12:30 70 17 147/64 H 06/29/19 12:20 73 26 H 06/29/19 12:10 69 26 H 95 06/29/19 12:01 72 25 H 126/64 94 06/29/19 12:00 70 23 94 06/29/19 11:53 70 26 H 133/78 94 06/29/19 11:50 70 26 H 94 06/29/19 11:40 66 19 93 06/29/19 11:30 65 21 93 06/29/19 11:20 67 21 92 06/29/19 11:10 68 21 94 06/29/19 11:06 70 24 94 06/29/19 10:50 68 17 94 06/29/19 10:40 70 18 96 06/29/19 10:33 97 06/29/19 10:31 73 22 96 06/29/19 10:30 75 22 148/78 H 94 06/29/19 10:20 72 23 94 06/29/19 10:10 77 20 94 06/29/19 10:07 74 17 149/89 H 96 06/29/19 10:00 73 22 95 06/29/19 09:59 36.9 C 77 73 26 H 136/98 149/89 H 97 06/29/19 09:58 78 25 H 06/29/19 09:54 76 21 163/98 H 95 Code Status & VTE Plan Code Status full code VTE Prophylaxis Plan VTE Prophylaxis will be ordered: Yes PG Care Time/CCT Total # of Minutes Spent Total Time Spent with Patient: Total time spent is greater than 50% in coordination of care (as documented) at patient's floor/unit and/or counseling patient:
[2019-06-30] MEDS ORDERED: MAGNESIUM SULFATE / D5W 1 GM/100 ML BAG IV ONE (01:00)
[2019-06-30] MEDS: ACETAMINOPHEN 325 MG TAB PO PRN ×2 (02:54→13:42)
[2019-06-30 06:11] LABS: Basophils # (auto) 0.03 K/uL (0-0.2); Basophils % (auto) 0.4 %; Eosinophils # (auto) 0.89 K/uL (0-0.5); Eosinophils % (auto) 11.7 %; Hematocrit (blood only) 36.3 % (37-47); Hemoglobin 11.9 g/dL (12.0-16.0); Immature Granulocytes # (auto) 0.01 K/uL (0.00-0.02); Immature Granulocytes % (auto) 0.1 %; Lymphocytes # (auto) 1.74 K/uL (1.2-3.4); Lymphocytes % (auto) 22.9 %; Mean Corpuscular Hemoglobin 29.4 pg (25-34); Mean Corpuscular Hgb Conc 32.8 g/dL (32-36); Mean Corpuscular Volume 89.6 fL (80-100); Mean Platelet Volume 9.6 fL (7.4-10.4); Monocytes # (auto) 0.69 K/uL (0.11-0.59); Monocytes % (auto) 9.1 %; Neutrophils # (auto) 4.23 K/uL (1.4-6.5); Neutrophils % (auto) 55.8 %; Platelet Count 219 K/uL (130-400); RDW Coefficient of Variation 14.5 % (11.5-14.5); RDW Standard Deviation 47.5 fL (36.4-46.3); Red Blood Count 4.05 M/uL (4.2-5.4); Reticulocyte % 1.6 % (0.5-2.0); Reticulocytes # 0.07 10^6/uL (0.02-0.10); White Blood Count 7.59 K/uL (4.8-10.8)
[2019-06-30 06:34] LABS: Estimated Average Glucose 171 mg/dl; Hemoglobin A1C 7.6 % (4.5-5.6)
[2019-06-30 06:39] LABS: Albumin Level 3.2 gm/dl (3.4-5.0); BUN Creatinine Ratio 33.5 (10-20); Calcium 9.3 mg/dl (8.5-10.1); Creatinine Clr Calc Pharmacy 45.1 ml/min; Est GFR (African American) 61.2; Est GFR (Non-African American) 52.8; Magnesium 2.1 mg/dl (1.8-2.4); Potassium 4.1 mmol/L (3.5-5.1)
[2019-06-30 06:42] LABS: Bilirubin,Total 0.4 mg/dl (0.2-1); Globulin 3.2 gm/dl (2.5-4.0); Total Protein 6.4 gm/dl (6.4-8.2)
[2019-06-30] MEDS: lisinopriL 10 MG TAB PO SCH (07:55)
[2019-06-30] MEDS: CALCIUM 600MG + VIT D 400 IU TAB PO SCH (07:55)
[2019-06-30] MEDS: BRIMONIDINE TARTRATE 0.2% 5ML OP SCH (07:56)
[2019-06-30] MEDS: INSULIN ASPART 100 UNITS/ML 3 ML PEN SC SCH ×2 (08:51→12:03)
[2019-06-30] MEDS: HEPARIN SOD 5,000 UNIT/0.5 ML VIAL SQ SCH (08:52)
[2019-06-30] MEDS ORDERED: VITAMIN B COMPLEX TAB PO SCH (09:00)
[2019-06-30] MEDS ORDERED: MULTIVITAMIN TAB PO SCH (09:00)
[2019-06-30] MEDS ORDERED: FLUTICASONE PROPIONATE NA SPR 16 GM BTL SCH (09:00)
[2019-06-30] MEDS ORDERED: ASPIRIN 81 MG ECTAB PO SCH (09:00)
[2019-06-30] MEDS ORDERED: OMEGA-3 (PURIFIED FISH OIL) 1 GM CAP PO SCH (09:00)
[2019-06-30 09:10] LABS: Folate (Folic Acid) 16.75 ng/ml (>5.38)
[2019-06-30] MEDS ORDERED: DOBUTamine HCL 12.5 MG/ML 20 ML VIAL IV ONE (09:12)
[2019-06-30] MEDS ORDERED: ATROPINE SULFATE 0.1 MG/ML 10ML SYR IV ONE (09:12)
[2019-06-30] MEDS ORDERED: METOPROLOL TARTRATE 1 MG/ML VIAL IV ONE (09:12)
--- NOTE | 2019-06-30 09:43 | Ultrasound Report ---
ULTRASOUND KIDNEYS AND BLADDER CLINICAL HISTORY: Recurrent urinary tract infections. COMPARISON STUDY: Abdominal CT dated 03/02/2014. TECHNIQUE: Real-time, grayscale, and color flow sonography of the kidneys and bladder is performed. I mages are reviewed in the transverse and longitudinal planes. FINDINGS: Kidneys: The kidneys demonstrate cortical atrophy and are normal and echotexture. The right kidney me asures 10.0 x 5.8 x 5.6 cm and the left kidney measures 11.0 x 5.2 x 5.0 cm. There is no hydronephro sis. No shadowing renal calculi are identified. There is no sonographic evidence of contour deforming renal mass lesion. No perinephric fluid is identified. Bladder: The partially distended bladder is grossly unremarkable. Bilateral ureteral jets were seen. Upper abdomen: Survey images of the liver show evidence of hepatomegaly and hepatic steatosis. IMPRESSION: 1. The kidneys demonstrate cortical atrophy and are without hydronephrosis. 2. The bladder is normal as imaged. 3. Hepatic steatosis. Electronically signed by: Anderson Haas M.D. 06/30/2019 9:41 AM
[2019-06-30] MEDS ORDERED: cefTRIAXone SODIUM 2,000 MG in DEXTROSE 5% 50 ML IV SCH (12:00)
--- NOTE | 2019-06-30 13:48 | Pharmacy Report ---
Pharmacy Glycemic Sign Off Nt - Date of Service June 30, 2019 - Assessment & Plan ASSESSMENT: * Patient with T2DM and HbA1c of 7.9% on two oral agents at home * BSG's ranging 82-137 mg/dL over 24 hours * Novolog parameters between weight-based low and moderate stress * No Lantus has been administered/needed * Stressors stable PLAN FOR INPATIENT GLYCEMIC CONTROL: No changes needed to current regimen. * Continue NovoLog per scale ACHS/Q6hrs while NPO * Goal range = 110-140 mg/dl * CF = 40 mg/dl/unit * CR = 1 unit for ever 16 g CHO consumed * Pharmacy is signing off of glycemic consult and will no longer be making adjustments to inpatient regimen. Please feel free to re-consult if needed. Thank you. DISCHARGE RECOMMENDATIONS: * Resume outpatient regimen
--- NOTE | 2019-06-30 17:04 | Discharge Summary ---
Date of Service June 30, 2019 Principal Diagnosis Non-cardiac chest pain Discharge Exam Constitutional WD/WN, vitals as above + obese Eyes PERRL, conjunctivae normal, anicteric sclerae ENMT external ear and nose normal, oropharynx normal Neck trachea midline, no thyromegaly Respiratory normal respiratory effort, lungs clear to auscultation Cardiovascular Heart Sounds: normal S1 and normal S2 Vessels: dorsalis pedis pulses present Gastrointestinal (Abdomen) normal bowel sounds, soft, nontender, no hepatosplenomegaly Musculoskeletal no cyanosis or clubbing, extremities motor strength 5/5 Skin no rashes, warm and dry Neurologic patellar DTR's 2+ bilat, sensation intact Psychiatric A+Ox3, euthymic affect Lymphatic no cervical or axillary lymphadenopathy Discharge Data Allergies Allergy/AdvReac Type Severity Reaction Status Date / Time allopurinol Allergy Unknown rash Verified 06/29/19 10:29 Icvbaqb-Nnh-Erw Reductase Allergy Unknown Muscle Verified 06/29/19 10:29 Inhibitor weakness. nitrofurantoin AdvReac Unknown Verified 06/29/19 10:29 [From Furadantin] Consultations 06/29/19 12:45 ED Decision to Admit Stat Ordered Studies 06/30/19 00:08 US renal/blad retro comp Routine Hospital Course (1) Precordial chest pain: Troponins and EKGs were negative. Dobutamine stress test was negative. Likely non-cardiac in nature. - Follow up with PCP. (2) Acute UTI: Started Ceftriaxone in the ER and continued on the floor. - Renal ultrasound showed kidney atrophy, likely due to her DM. - Only needed 1 more day of abx - Discharged on Cipro x 2 doses with PCP follow up. (3) Nephrolithiasis: Pt had issues in the past but not now, see above. (4) Hypertension: Stable, continue home meds: Asa 81 mg QD, coenzyme Q10 100 mg PO hS, diltiazem 120 mg PO hs, furosemide 20 mg PO 3 times weekly, lisinopril 10 mg PO BID, Monitor BP Q4 hr and titrate meds as needed. (5) Hyperlipidemia: Lipid panel pending, continue Fish oil and rosuvastatin 5 mg PO MO. (6) Diabetes mellitus: hold metformin while pt hospitalized due to possible needs for radiological procedure with contrast and or impending hypoglycemia. Accu cheks AC&HS, SSI, management per pharmacy. (7) Asthma: continue home meds: Albutereol HFA, and for seasonal allergies fluticasone 2 sprays IN QA, (8) Anemia: appears to be due to chronic Illness and less likely due to blood loss. F/u iron studies.Fiob pending. Total Time Total Time Spent Total Time Spent (In Minutes): 34 Total Time Includes: Examination of the Patient and Communication With Other Providers Discharge Plan Discharge Items Patient Disposition: Home - Self-Care Reason For Visit: CHEST TIGHTNESS,URINARY TRACT INFECTION Discharge Diagnosis: Non-cardiac chest pain Activity: Resume your previous activity Non-emergency contact: Primary Care Provider Call non-emergency contact if: your pain is worsening Follow-up/Referrals: Sarah Beth Flores, DO [Primary Care Provider] - 07/06/19 10:15 am (Please, follow up at Dr. Sraah Beth Flores's office with her associate, Khalif NIEVSE on SaturdayJuly 06 at 10:15 am. *If you need to change this appointment, call the office at [phone].) Diet: Carb Consistent or DM2 Addtl Attending Provider Instructions: Cherelle Vane, You were admitted to the hospital with chest tightness. We did troponins that were negative, meaning you did not have a heart attack. A stress test was also negative, showing us that you have good blood flow to all areas of the heart. If the chest pain comes back, please contact your PCP to discuss non-cardiac reasons for chest pain, including GI-related issues or musculoskeletal pain. I sent in one more day's worth of ciprofloxacin for your UTI that was found in the ED. You can take the first dose tomorrow morning, then the last dose before bed tomorrow. If your symptoms don't get better, please contact your PCP. We did a renal ultrasound which was normal and did not see any hydronephrosis or kidney stones that could be causing repeat UTIs. Pending Studies at Discharge: No Stand-Alone Forms: Call Back Authorization, My [facility] Medications and DC Order Prescriptions: New ciprofloxacin HCl 500 mg tablet 500 mg PO Q12H Qty: 2 RF: 0 Continued metformin 1,000 mg tablet 1,000 mg PO BID Qty: 180 RF: 1 Saccharomyces boulardii 250 mg capsule 250 mg PO HS RF: 0 albuterol sulfate [ProAir HFA] 90 mcg/actuation HFA aerosol inhaler 1 puff INHALATION Q6H PRN (Reason: Shortness Of Breath) Qty: 18 RF: 0 glipizide 10 mg tablet 10 mg PO BID Qty: 180 RF: 0 lisinopril 10 mg tablet 10 mg PO BID Qty: 180 RF: 0 Accu-Chek Compact Plus Care kit .ROUTE .MEDSUPPLY Qty: 1 RF: 0 nitrofurantoin macrocrystal 100 mg capsule 100 mg PO HS RF: 0 diltiazem HCl [Cardizem CD] 120 mg capsule,extended release 24hr 120 mg PO HS RF: 0 furosemide [Lasix] 20 mg tablet 20 mg PO 3XWK RF: 0 fluticasone propionate 50 mcg/actuation spray,suspension 2 sprays intranasal QAM RF: 0 ezetimibe [Zetia] 10 mg tablet 10 mg PO QAM RF: 0 rosuvastatin [Crestor] 5 mg tablet 5 mg PO MO RF: 0 acetaminophen [Tylenol Extra Strength] 500 mg Tablet 500 mg PO Q6H PRN (Reason: Pain) RF: 0 multivitamin Tablet 1 tab PO QAM RF: 0 latanoprost 0.005 % Drops 1 drp OPHTHALMIC (EYE) HS RF: 0 aspirin [Aspirin Low Dose] 81 mg Tablet,Delayed Release (Dr/Ec) 81 mg PO QAM RF: 0 vitamin B complex Tablet 1 tab PO QAM RF: 0 magnesium 200 mg Tablet 400 mg PO 3XWK RF: 0 calcium carbonate-vitamin D3 [Calcium 500 + D] 500 mg(1,250mg) -200 unit Tablet 1 tab PO BID RF: 0 Alphagan P 0.1 % Drops 1 drp OPHTHALMIC (EYE) BID RF: 0 omega 4-xiz-sgf-fish oil [Fish Oil] 1,000 mg (120 mg-180 mg) Capsule 1 cap PO QAM RF: 0 coenzyme Q10 100 mg Tablet 100 mg PO HS RF: 0 Discharge Orders: Discharge Order (Routine); Ordered 06/30/19 Ordered By: Kota Parsons Admission Data Admit Date/Time: 06/29/19 14:34 Attending Provider: Kota Parsons Admit Provider: Daniel Bullard Primary Care Provider: Sarah Beth Flores Other Providers: Kota Parsons Other Interventions: Discharge Summary Assessment (RN) Last Done: 06/30/19 14:40 DC Date/Time DO NOT enter until pt leaves facility: 06/30/19 16:27
== END 2019-06-30 16:27 | disposition home or self-care (01) ==
LOC: 2E 09:52 → ED 09:52 → SUATTDRO 14:34 → 2E 16:20